=== PATIENT | male | born 1965 ===

== ENCOUNTER → 2024-08-24 10:08 | Outpatient (BNVA) | payer OTHER, SELFPAY | PROVIDERS: Family Provider Nurse Practitioner Family; PCP Nurse Practitioner Family; Referring Provider Nurse Practitioner Family; Visit Provider Student in an Organized Health Care Education/Training Program | DX: Z12.11 Encounter for screening for malignant neoplasm of colon (principal) | CPT/HCPCS: 99204 ==

== ENCOUNTER 2024-11-09 06:39 | Day surgery (SDC) | payer OTHER, SELFPAY ==
--- NOTE | 2024-11-09 07:01 | ANES.PREANE2 ---
Pre-Anesthetic Assessment Height/Weight: Height 5 ft 8 in Preop Diagnosis: Screening colonoscopy Operation Date: 11/09/24 08:00 Proposed Procedures p Colonoscopy 39863, G0121, Z12.11(Not Applicable) - Konstantin James MD Was Beta Alexander taken within 24 hours: Yes Was Clonidine taken within 24 hours: N/A Social Tobacco and No alcohol Exam alert, oriented x 3 and regular rate & rhythm Decreased breath sounds bilaterally Airway Submandibular: within normal limits Cervical ROM: within normal limits Mallampati: Class III Dentition: other (Multiple missing teeth, poor dentition. Denies any loose) Anesthetic Plan ASA status: 3 Anesthesia: MAC Other: Patient states he is quick to awake from anesthesia Completed bowel prep History of hypertension on carvedilol and lisinopril CAD, stent x 1, 2 years ago. On chronic Plavix. Taken 11/02/2024 Current smoker Patient states that he is able to get around okay but does admit to SOB Plan for MAC anesthetic Medications/Allergies Home Medications Medication Instructions Recorded Confirmed Last Taken Type atorvastatin 80 mg tablet 80 mg PO DAILY 08/24/24 11/09/24 11/08/24 History carvedilol 6.25 mg tablet 6.25 mg PO DAILY 08/24/24 11/09/24 11/08/24 History clopidogrel 75 mg tablet 75 mg PO DAILY 08/24/24 11/09/24 11/02/24 History cyclobenzaprine 10 mg tablet 10 mg PO PRN PRN Muscle Spasm 08/24/24 11/09/24 11/08/24 History diclofenac sodium 1 % topical gel 4 g topical QID 08/24/24 11/09/24 Unknown History (Aleve (diclofenac)) gabapentin 100 mg capsule 100 mg PO TID 08/24/24 11/09/24 11/08/24 History lisinopril 20 mg tablet 20 mg PO DAILY 08/24/24 11/09/24 11/08/24 History nitroglycerin 0.4 mg sublingual 0.4 mg sublingual Q5M PRN Chest 08/24/24 11/09/24 Unknown History tablet Pain tamsulosin 0.4 mg capsule 0.4 mg PO DAILY 08/24/24 11/09/24 11/08/24 History Allergies Allergy/AdvReac Type Severity Reaction Status Date / Time No Known Allergies Allergy Unverified 11/06/24 08:57 [facility] Anesthesia Family History (Updated 08/24/24 @ 10:[address]) Father Cancer unknown Mother Brain aneurysm Social History (Updated 08/24/24 @ 10:49 by BRANDEE Yuan) Smoking and tobacco/nicotine status: current every day tobacco/nicotine user cigarettes [ Other cigarette details: and chews tobacco] Alcohol intake: current Alcohol intake frequency: holidays/special occasions only Data Anesthesia Cardiac Studies: No Data to Display
[2024-11-09 07:02] VITALS: BP 117/89; PULSE 101; RESP 17; TEMP 36.8; O2SAT 96; BMI 33.4
[2024-11-09] MEDS: sodium chloride 0.9% 500 ML 15 ML IV (07:11)
--- NOTE | 2024-11-09 07:49 | W.PM.OPSFHP ---
Same Day Surgery H&P Indication for Procedure/HPI DATE OF PROCEDURE: November 09, 2024 CHIEF COMPLAINT/INDICATIONFOR SURGICAL PROCEDURE: screening colonoscopy PREOP DIAGNOSIS: Screening colonoscopy PLANNED PROCEDURE: Operation Date: 11/09/24 08:00 Proposed Procedures p Colonoscopy 04903, G0121, Z12.11(Not Applicable) - Konstantin James MD Medications/Allergies* Home Medications Medication Instructions Recorded Confirmed Type atorvastatin 80 mg tablet 80 mg PO DAILY 08/24/24 11/09/24 History carvedilol 6.25 mg tablet 6.25 mg PO DAILY 08/24/24 11/09/24 History clopidogrel 75 mg tablet 75 mg PO DAILY 08/24/24 11/09/24 History cyclobenzaprine 10 mg tablet 10 mg PO PRN PRN Muscle Spasm 08/24/24 11/09/24 History diclofenac sodium 1 % topical gel 4 g topical QID 08/24/24 11/09/24 History (Aleve (diclofenac)) gabapentin 100 mg capsule 100 mg PO TID 08/24/24 11/09/24 History lisinopril 20 mg tablet 20 mg PO DAILY 08/24/24 11/09/24 History nitroglycerin 0.4 mg sublingual 0.4 mg sublingual Q5M PRN Chest 08/24/24 11/09/24 History tablet Pain tamsulosin 0.4 mg capsule 0.4 mg PO DAILY 08/24/24 11/09/24 History Allergies/Adverse Reactions Allergy/AdvReac Type Severity Reaction Status Date / Time No Known Allergies Allergy Unverified 11/06/24 08:57 Current Medications: Generic Name Dose Route Start Last Admin Trade Name Freq PRN Reason Stop Dose Admin Sodium Chloride 500 mls @ 15 mls/hr 11/09/24 06:52 11/09/24 07:11 Sodium Chloride 0.9% IV 11/10/24 06:51 15 mls/hr .Q24H PRN Administration COLONOSCOPY FLUIDS Pertinent History/Comorbid Conditions* Family History (Updated 08/24/24 @ 10:48 by BRANDEE Yuan) Brain aneurysm Mother Cancer Father unknown Social History Smoking and tobacco/nicotine status: current every day tobacco/nicotine user cigarettes [ Other cigarette details: and chews tobacco] Alcohol intake: current Alcohol intake frequency: holidays/special occasions only Pertinent Exam Findings alert, oriented x 3, clear to auscultation bilaterally, regular rate & rhythm and procedure specific exam findings abdomen soft, nt, nd Recommendations Surgery/Procedure today Coding Level of Care Code Acute Code for Chg Fwd
[2024-11-09 08:30] VITALS: BP 79/50; PULSE 82; RESP 14; TEMP 36.1; O2SAT 89
[2024-11-09 08:45] VITALS: BP 84/54; PULSE 78; RESP 16; O2SAT 93
[2024-11-09 08:55] VITALS: BP 94/58; PULSE 84; RESP 18; O2SAT 96
--- NOTE | 2024-11-09 09:24 | ANE.PACU2 ---
Inpatient post-anesthesia follow up: Airway intact: Yes Vital signs: Temperature 97.0 F Pulse Rate 84 Respiratory Rate 18 Blood Pressure 94/58 Pulse Oximetry 96 Oxygen Delivery Me thod Room Air Oxygen Flow Rate 5 Fraction of Inspir ed Oxygen Hydration adequate: Yes Nausea and vomiting: No Pain level: 1 Mental status: Baseline
--- NOTE | 2024-11-09 09:28 | PC.NURSE ---
0915 - Patient unable to pass gas. Ambulated in [place] x 1 assist. Still unable to pass gas after ambulating. Dr. James notified - patient is ok to be discharged home per Dr. James.
== END 2024-11-09 09:24 | disposition home or self-care (01) ==
PROVIDERS: PCP Family Medicine; Visit Provider Student in an Organized Health Care Education/Training Program
PROC: 0DJD8ZZ Inspection of Lower Intestinal Tract, Via Natural or Artificial Opening Endoscopic (ICD-10-PCS; CPT 45378; principal; 2024-11-09 08:00)
DX: Z12.11 Encounter for screening for malignant neoplasm of colon (principal); D12.8 Benign neoplasm of rectum; D12.2 Benign neoplasm of ascending colon; D12.3 Benign neoplasm of transverse colon; F17.210 Nicotine dependence, cigarettes, uncomplicated; I10 Essential (primary) hypertension; I25.10 Atherosclerotic heart disease of native coronary artery without angina pectoris; Z95.5 Presence of coronary angioplasty implant and graft; Z79.02 Long term (current) use of antithrombotics/antiplatelets; F17.220 Nicotine dependence, chewing tobacco, uncomplicated
CPT/HCPCS: 45380; 45385; 88305; J2371; J2704; J7040

== ENCOUNTER → 2024-11-20 12:23 | Outpatient (BNVA) | payer OTHER, SELFPAY | PROVIDERS: PCP Family Medicine; Visit Provider Student in an Organized Health Care Education/Training Program | DX: Z09 Encounter for follow-up examination after completed treatment for conditions other than malignant neoplasm (principal) | CPT/HCPCS: 99213 ==